=== PATIENT | female | born 1985 | race Caucasian/White ===

== ENCOUNTER 2025-02-25 16:02 | Emergency (ER) | payer OTHER ==
[~2025-02-25] VITALS: Ht 160 cm; Wt 62.1 kg
[2025-02-25 17:14] VITALS: BP 140/80; TEMP 98.2; O2SAT 98
== END 2025-02-25 18:00 | disposition home or self-care (01) ==
LOC: ER 17:20
DX: S16.1XXA Strain of muscle, fascia and tendon at neck level, initial encounter (principal); V43.52XA Car driver injured in collision with other type car in traffic accident, initial encounter; Y93.89 Activity, other specified; Y92.410 Unspecified street and highway as the place of occurrence of the external cause; Y99.9 Unspecified external cause status